=== PATIENT | female | born 1950 | race Caucasian/White ===

== ENCOUNTER 2018-04-18 14:29 | Emergency (ER) | payer MEDICAID, MEDICARE ==
[2018-04-18 16:13] LABS: ADD MAN DIFF? NO
[2018-04-18 16:17] LABS: WHITE BLOOD COUNT 7.4 10^3/ul (4.8-10.8)
[2018-04-18 16:17] LABS: BASOPHILS % 0.4 % (0.0-2.0); EOSINOPHILS % 0.4 % (0.0-7.0); HEMATOCRIT 28.6 % (37.0-47.0); HEMOGLOBIN 9.9 g/dl (12.0-16.0); LYMPHOCYTES # 1.7 10^3/ul (0.8-2.9); LYMPHOCYTES % 22.6 % (15.0-51.0); MEAN CORPUSCULAR HEMOGLOBIN 31.3 pg (29.0-33.0); MEAN CORPUSCULAR HGB CONC 34.6 g/dl (32.0-37.0); MEAN CORPUSCULAR VOLUME 90.5 fl (82.0-101.0); MEAN PLATELET VOLUME 10.2 fl (7.4-10.4); MONOCYTE # 0.5 10^3/ul (0.3-0.9); MONOCYTES % 6.1 % (0.0-11.0); NEUTROPHIL # 5.2 10^3/ul (1.6-7.5); NEUTROPHILS % 70.4 % (39.0-77.0); PLATELET COUNT 220 10^3/UL (140-415); RED BLOOD COUNT 3.16 10^6/ul (4.20-5.40); RED CELL DISTRIBUTION WIDTH 11.9 % (11.5-14.5)
[2018-04-18 16:35] LABS: ANION GAP 10 (5-13); BLOOD UREA NITROGEN 13 mg/dl (7-20); CALCIUM 9.4 mg/dl (8.4-10.2); CARBON DIOXIDE 25 mmol/L (21-31); CHLORIDE 102 mmol/L (97-110); CREATININE 0.46 mg/dl (0.44-1.00); Estimated GFR > 60 mL/min (>60); GLUCOSE 218 mg/dl (70-220); SODIUM 137 mmol/L (135-144)
[2018-04-18] MEDS: SOD CHLORIDE 0.9% 500 ML IV (16:40)
[2018-04-18] MEDS: METOCLOPRAMIDE 10 MG INJ IV (16:41)
[2018-04-18] MEDS: morphine 4 MG/ML VIAL IV (16:43)
[2018-04-18] MEDS: TETRACAINE 0.5% 4 ML OPH BOTH EYES (16:55)
[2018-04-18] MEDS: FLUORESCEIN STRIP BOTH EYES (16:55)
[2018-04-18] MEDS: KETOROLAC 15 MG INJ IV (16:55)
[2018-04-18 17:30] LABS: ERYTHROCYTE SEDIMENTATION RATE 50 mm/Hr (0-30)
[2018-04-18] MEDS ORDERED: METHYLPRED. NA SUCC 1,000 MG in DEXTROSE 5% 50 ML IVPB (20:00)
== END 2018-04-18 22:15 | disposition short-term general hospital (02) ==
LOC: E/R 14:29
DX: H57.13 Ocular pain, bilateral (principal); H54.3 Unqualified visual loss, both eyes; R40.2142 Coma scale, eyes open, spontaneous, at arrival to emergency department; R40.2252 Coma scale, best verbal response, oriented, at arrival to emergency department; R40.2362 Coma scale, best motor response, obeys commands, at arrival to emergency department; I10 Essential (primary) hypertension; E11.9 Type 2 diabetes mellitus without complications; Z79.4 Long term (current) use of insulin; Z79.82 Long term (current) use of aspirin
CPT/HCPCS: 36415; 70450; 80048; 85025; 85651; 96374; 96375; 99285-25

== ENCOUNTER 2018-11-20 17:25 | Emergency (ER) | payer MEDICAID ==
[2018-11-20 17:59] LABS: ADD MAN DIFF? NO
[2018-11-20 18:02] LABS: BASOPHIL # 0.1 10^3/ul (0.0-0.1); BASOPHILS % 0.9 % (0.0-2.0); EOSINOPHILS # 0.1 10^3/ul (0.0-0.5); EOSINOPHILS % 1.2 % (0.0-7.0); HEMATOCRIT 29.3 % (37.0-47.0); HEMOGLOBIN 9.7 g/dl (12.0-16.0); LYMPHOCYTES # 1.7 10^3/ul (0.8-2.9); LYMPHOCYTES % 30.7 % (15.0-51.0); MEAN CORPUSCULAR HEMOGLOBIN 29.6 pg (29.0-33.0); MEAN CORPUSCULAR HGB CONC 33.1 g/dl (32.0-37.0); MEAN CORPUSCULAR VOLUME 89.3 fl (82.0-101.0); MEAN PLATELET VOLUME 10.1 fl (7.4-10.4); MONOCYTE # 0.4 10^3/ul (0.3-0.9); MONOCYTES % 6.2 % (0.0-11.0); NEUTROPHIL # 3.4 10^3/ul (1.6-7.5); PLATELET COUNT 255 10^3/UL (140-415); RED BLOOD COUNT 3.28 10^6/ul (4.20-5.40); RED CELL DISTRIBUTION WIDTH 12.6 % (11.5-14.5)
[2018-11-20 18:02] LABS: WHITE BLOOD COUNT 5.6 10^3/ul (4.8-10.8)
[2018-11-20] MEDS: ONDANSETRON 4 MG INJ IV (18:06)
[2018-11-20] MEDS: SOD CHLORIDE 0.9% 1,000 ML IV (18:07)
[2018-11-20] MEDS: FENTAnyl 50 MCG/ML VIAL IV (18:07)
[2018-11-20 18:20] LABS: ALANINE AMINOTRANSFERASE 28 IU/L (13-69); ALBUMIN/GLOBULIN RATIO 1.02; ALKALINE PHOSPHATASE 102 IU/L (42-121); ANION GAP 9 (5-13); ASPARTATE AMINO TRANSFERASE 38 IU/L (15-46); BILIRUBIN,INDIRECT 0.6 mg/dl (0-1.1); BILIRUBIN,TOTAL 0.6 mg/dl (0.2-1.3); BLOOD UREA NITROGEN 16 mg/dl (7-20); CALCIUM 9.1 mg/dl (8.4-10.2); CARBON DIOXIDE 22 mmol/L (21-31); CHLORIDE 106 mmol/L (97-110); CREATININE 0.74 mg/dl (0.44-1.00); Estimated GFR > 60 mL/min (>60); GLUCOSE 149 mg/dl (70-220); LIPASE 79 U/L (23-300); POTASSIUM 3.7 mmol/L (3.5-5.1); SODIUM 137 mmol/L (135-144); TOTAL PROTEIN 7.9 g/dl (6.1-8.1)
[2018-11-20 18:31] LABS: TROPONIN-I < 0.012 ng/ml (0.000-0.120)
[2018-11-20] MEDS: SOD CHLORIDE 0.9% 100 ML (18:35)
[2018-11-20] MEDS: IOHEXOL 300MG/ML 150 ML BTL (18:35)
[2018-11-20 19:44] LABS: ADD UMIC YES; UR ASCORBIC ACID NEGATIVE (NEGATIVE); UR BILIRUBIN (Dip) NEGATIVE (NEGATIVE); UR BLOOD (Dip) 1+ mg/dL (NEGATIVE); UR CLARITY CLEAR (CLEAR); UR COLOR YELLOW (YELLOW); UR GLUCOSE (Dip) NEGATIVE (NEGATIVE); UR KETONES (Dip) NEGATIVE (NEGATIVE); UR LEUKOCYTE ESTERASE (Dip) NEGATIVE Leu/ul (NEGATIVE); UR NITRITE (Dip) NEGATIVE (NEGATIVE); UR RBC 3 /HPF (0-5); UR SPECIFIC GRAVITY (Dip) 1.024 (1.003-1.030); UR TOTAL PROTEIN (Dip) NEGATIVE (NEGATIVE); UR UROBILINOGEN (Dip) NEGATIVE (NEGATIVE); UR WBC 1 /HPF (0-5)
[2018-11-20] MEDS: BISACODYL (EC) 5 MG TAB PO (21:52)
== END 2018-11-20 21:51 | disposition home or self-care (01) ==
LOC: E/R 17:25
DX: R10.84 Generalized abdominal pain (principal); I10 Essential (primary) hypertension; E11.9 Type 2 diabetes mellitus without complications; Z79.4 Long term (current) use of insulin; Z79.82 Long term (current) use of aspirin
CPT/HCPCS: 36415; 71045; 74177; 80053; 81001; 83690; 84484; 85025; 87086; 93005; 96374; 96375; 99285-25